=== PATIENT | female | born 1985 | race Caucasian/White ===

== ENCOUNTER 2017-09-22 15:53 | Emergency (ER) | payer OTHER ==
[~2017-09-22] VITALS: Ht 167.6 cm; Wt 56.7 kg
[~2017-09-22 15:53] MED LIST: DIPATR PO; METO10 PO; PROC10 PO; PROC25S PR; RXOXYACE PO; RXPROM25 PO
== END 2017-09-22 16:52 | disposition home or self-care (01) ==
LOC: ER 15:53
DX: K42.9 Umbilical hernia without obstruction or gangrene (principal); K43.9 Ventral hernia without obstruction or gangrene; Z88.0 Allergy status to penicillin; Z88.5 Allergy status to narcotic agent; Z87.891 Personal history of nicotine dependence
CPT/HCPCS: 99282

== ENCOUNTER → 2019-09-16 | Outpatient (CLI) | payer OTHER | LOC: LAB 11:15 → LAB SHORT 11:15 | DX: Z34.83 Encounter for supervision of other normal pregnancy, third trimester (principal) | CPT/HCPCS: 87081; 87653 ==

== ENCOUNTER 2019-10-11 15:31 | Inpatient (IN) | payer OTHER ==
[~2019-10-11] VITALS: Ht 167.6 cm; Wt 71.2 kg
[2019-10-11 16:55] LABS: BASOPHILS ABSOLUTE AUTO 0.01 K/mm3 (0.00-0.23); BASOPHILS PERCENT AUTO 0 % (0-2); EOSINOPHILS PERCENT AUTO 0 % (0-6); Hematocrit 41.4 % (33.0-51.0); Hemoglobin 14.4 g/dL (11.5-16.0); IMMATURE GRAN ABSOLUTE AUTO 0.02 K/mm3 (0.00-0.10); IMMATURE GRAN PERCENT AUTO 0 % (0-1); LYMPHOCYTES PERCENT AUTO 14 % (21-46); MONOCYTES PERCENT AUTO 8 % (4-13); Mean Corpuscular HGB 30.2 pg (26.0-34.0); Mean Corpuscular HGB Conc 34.8 g/dL (31.5-36.5); Mean Corpuscular Volume 87 fL (80-100); Mean Platelet Volume 11.8 fL (9.1-12.4); NEUTROPHILS ABSOLUTE AUTO 5.48 K/mm3 (1.96-9.15); NEUTROPHILS PERCENT AUTO 77 % (41-73); Platelet Count 222 K/mm3 (150-400); RDW Coefficient Variation 13.5 % (11.7-14.2); RDW Standard Deviation 42.6 fL (35.1-46.3); Red Blood Cell Count 4.77 M/mm3 (3.80-5.20); White Blood Cell Count 7.11 K/mm3 (4.00-11.30)
[2019-10-13 05:50] LABS: Hematocrit 35.7 % (33.0-51.0); Hemoglobin 12.2 g/dL (11.5-16.0); Mean Corpuscular HGB 30.3 pg (26.0-34.0); Mean Corpuscular HGB Conc 34.2 g/dL (31.5-36.5); Mean Corpuscular Volume 89 fL (80-100); Mean Platelet Volume 11.1 fL (9.1-12.4); Platelet Count 188 K/mm3 (150-400); RDW Coefficient Variation 13.7 % (11.7-14.2); RDW Standard Deviation 44.6 fL (35.1-46.3); Red Blood Cell Count 4.02 M/mm3 (3.80-5.20); White Blood Cell Count 11.73 K/mm3 (4.00-11.30)
--- NOTE | 2019-10-13 07:29 | NUR ---
ASSUMED CARE REPT FROM Jessica FERRARA RN, PT SITTING UP IN BED HOLDING NB REQUESTING MORTIN WITH BREAKFAST, [facility] STATES NB FUSSY NOT FEEDING REALLY WELL, SCHEDULED LC CONSULT THIS MORNING WITH Ayleen PONCE RN
--- NOTE | 2019-10-13 15:04 | NUR ---
DISCHARGE TEACHING COMPLETED, LC DONE BY A ROSARIO RN PRIOR TO DISCHARGE
--- NOTE | 2019-10-13 15:10 | NUR ---
DISCHARGED TO HOME WITH NEGRO
--- NOTE | 2019-10-13 17:23 | NUR ---
RN ROUNDED TO HELP W/ . NB NOT INTERESTED IN FEEDING. INSTRUCT/DEMO CORRECT POSITIONING AND LATCHING, NIPPLE SHAPE AFTER FEEDS, AND HAND EXPRESSION. INSTRUCTED ON FREQUENCY OF FEEDINGS AND SUPPLY AND DEMAND OF . FURTHER SUPPORT OFFERED IN CLINIC. PT LOVING W/ NB, DENIES ANY FURTHER QUESTIONS OR CONCERNS.
[2019-10-15 23:10] LABS: F001-IGE EGG WHITE <0.10 kU/L (Class 0); F002-IGE MILK 0.13 kU/L (Class 0/I); F003-IGE CODFISH <0.10 kU/L (Class 0); F010-IGE SESAME SEED 0.13 kU/L (Class 0/I); F013-IGE PEANUT 0.16 kU/L (Class 0/I); F014-IGE SOYBEAN <0.10 kU/L (Class 0); F017-IGE HAZELNUT (FILBERT) <0.10 kU/L (Class 0); F020-IGE ALMOND <0.10 kU/L (Class 0); F024-IGE SHRIMP <0.10 kU/L (Class 0); F040-IGE TUNA <0.10 kU/L (Class 0); F041-IGE SALMON <0.10 kU/L (Class 0); F202-IGE CASHEW NUT <0.10 kU/L (Class 0); F256-IGE WALNUT <0.10 kU/L (Class 0); F338-IGE SCALLOP <0.10 kU/L (Class 0)
== END 2019-10-13 15:10 | disposition home or self-care (01) | DRG 807 ==
LOC: OBS 15:31 → BC 15:33 → OBS 15:58 → BC 15:59
PROVIDERS: Obstetrics & Gynecology; ADMIT Registered Nurse Community Health
PROC: 10E0XZZ Delivery of Products of Conception, External Approach (ICD-10-PCS; principal; 2019-10-12)
PROC: 10H07YZ Insertion of Other Device into Products of Conception, Via Natural or Artificial Opening (ICD-10-PCS; 2019-10-12)
PROC: 00HU33Z Insertion of Infusion Device into Spinal Canal, Percutaneous Approach (ICD-10-PCS; 2019-10-12)
PROC: 3E0R3BZ Introduction of Anesthetic Agent into Spinal Canal, Percutaneous Approach (ICD-10-PCS; 2019-10-12)
DX: O99.824 Streptococcus B carrier state complicating childbirth (principal); Z37.0 Single live birth; O76 Abnormality in fetal heart rate and rhythm complicating labor and delivery; O69.1XX0 Labor and delivery complicated by cord around neck, with compression, not applicable or unspecified; O34.211 Maternal care for low transverse scar from previous cesarean delivery; Z3A.39 39 weeks gestation of pregnancy
CPT/HCPCS: 36415; 51702; 85025; 85027; 86003; 86850; 86900; 86901; J0290; J2001; J2590; J3010; J7120